=== PATIENT | male | born 1990 | race Hispanic/Latino ===

== ENCOUNTER 2019-06-29 19:10 | Emergency (ER) | payer SELFPAY ==
[2019-06-29 19:21] VITALS: BP 146/95; PULSE 62; RESP 16; TEMP 36.4; O2SAT 100
--- NOTE | 2019-06-29 19:37 | ED.GENADULT ---
HPI - General Adult General Chief complaint: Neuro Symptoms/Deficit Stated complaint: Left arm Numbness Time Seen by Provider: 06/29/19 19:37 Source: patient and RN notes reviewed Mode of arrival: ambulatory Limitations: no limitations History of Present Illness HPI narrative: This is a 29 years old male presented office for evaluation of left arm weakness since yesterday. Associated with numbness/tingling sensation in fingers. Symptoms began shortly after he slept on his arm for about an hour or so. Stated, he drank about 48 ounces of hard alcohol throughout the day yesterday before he passed out on his arm. Denies injury or trauma. Denies recreational drug use.His friend drove him here today.Denies past medical history except reflux.He does not smoke however he does vapor Related Data Home Medications Medication Instructions Recorded Confirmed esomeprazole magnesium 40 mg PO DAILY 06/29/19 06/29/19 Allergies Allergy/AdvReac Type Severity Reaction Status Date / Time shellfish derived Allergy Itching Verified 06/29/19 23:49 Review of Systems Review of Systems: Narrative: CONSTITUTIONAL: Denies fever ENT: Denies congestion CARDIOVASCULAR: Denies chest pain RESPIRATORY: Denies cough GASTROINTESTINAL: Denies vomiting GENITOURINARY: Denies urinary symptoms SKIN: Denies rash MUSCULOSKELETAL: Left arm weakness with numbness/tingling sensation. He able to moves his wrist and fingers with a little force; but nothing above it. He could not bend his elbow or move his shoulder. He is right hand dominated. NEUROLOGIC: Denies lightheaded/dizziness or head injury PMF Past Medical History Medical History (Updated 06/30/19 @ 08:19 by CODY Jeffrey) GERD (gastroesophageal reflux disease) Healthy adult Surgical History Surgical History No history of previous surgery Social History Social History Smoking status: Current every day smoker Tobacco type: e-cigarettes Alcohol intake: current Drinks per week: 1 Substance use: never Gender identity (if verbalized by the patient): Male Spiritual care concerns: No Agree to blood products: Yes Comments At time of signature, I agree with nursing past medical, surgical, social and family history. There is no relevant family history pertinent to the presenting complaint. Exam Narrative: Exam Narrative: GENERAL: This is a well-nourished, well-developed patient, in no apparent distress. HEENT: PERRL. EMOI. NO facial droops. No slur speech. CARDIOVASCULAR: Regular rate and rhythm without murmurs, gallops, or rubs. RESPIRATORY: Clear to auscultation. Breath sounds equal bilaterally. No wheezes, rales, or rhonchi. GASTROINTESTINAL: Abdomen soft, non-tender, nondistended. Bowel sounds are active. No hepato-splenomegaly, or palpable masses. No guarding. SKIN: warm, intact with no suspicious lesions or rash, good texture and turgor. NEURO: awake, alert, and oriented to person, place and time. There were no obvious focal neurologic abnormalities. Steady gait. EXTREMITIES: Right arm with normal range of motion and sensation. Left arm appears weight; 2/5 strength hand grasp, drop immediately with hand raise; no obvious swelling, edematous or trauma. Sensation is slightly dull as compared to right arm. Noted old scars from cutting. Shoulder with normal PROM. BACK: Nontender without deformity or crepitance. [place] Coma Scale Eye Opening: Spontaneous 4 [place] Coma Scale Motor: Obeys Commands 6 Gabriel Coma Scale Verbal: Oriented 5 Course Vital Signs Vital signs: Vital Signs Temperature 97.6 F 06/29/19 19:21 Pulse Rate 62 06/29/19 19:21 Respiratory Rate 16 06/29/19 19:21 Blood Pressure 146/95 H 06/29/19 19:21 Pulse Oximetry 100 06/29/19 19:21 Temperature 97.6 F 06/29/19 19:21 Pulse Rate 62 06/29/19 19:21 Respiratory Rat
== END 2019-06-29 19:56 | disposition short-term general hospital (02) ==
PROVIDERS: Emergency Provider Nurse Practitioner
DX: M62.81 Muscle weakness (generalized) (principal); F17.200 Nicotine dependence, unspecified, uncomplicated; K21.9 Gastro-esophageal reflux disease without esophagitis
CPT/HCPCS: 99212; G0463

== ENCOUNTER 2019-06-29 20:19 | Observation (INO) | payer SELFPAY ==
--- NOTE | ~2019-06-29 | US_ITS ---
EXAMINATION: US carotid duplex BI DATE: 06/30/2019 09:59 INDICATION: Left hemiparesis. TECHNIQUE: Grayscale, color Doppler, and pulsed Doppler images of the cervical carotid arteries were obtained. The degree of vessel stenosis is placed in one of the following categories: normal, <50%, 5 0-69%, >=70% but less than near-occlusion, near-occlusion, or total occlusion. Note that percent sten osis relative to normal distal artery lumen diameter is indirectly measured from velocity measurement s as described by Raimundo, et al. Radiology 2003; 229:340-346. COMPARISON: None. FINDINGS: RIGHT: The right common carotid artery (CCA) peak systolic velocity (PSV) is 110 cm/s. The right internal ca rotid artery (ICA) PSV is 81 cm/s. The right ICA end-diastolic velocity (EDV) is 39 cm/s. The right I CA/CCA PSV ratio is 0.7. Grayscale and color Doppler images yield an estimate of 0% diameter reductio n from plaque in the ICA. There is antegrade flow in the right vertebral artery. LEFT: The left CCA PSV is 120 cm/s. The left ICA PSV is 83 cm/s. The left ICA EDV is 37 cm/s. The left ICA/ CCA PSV ratio is 0.7. Grayscale and color Doppler images yield an estimate of 0% diameter reduction f rom plaque in the ICA. There is antegrade flow in the left vertebral artery. IMPRESSION: 1. Normal internal carotid arteries. Reviewed, dictated and finalized at location A. NGS ANALYST
--- NOTE | ~2019-06-29 | MR_ITS ---
EXAMINATION: MR brain/brain stem wo/w con DATE: 06/30/2019 09:14 INDICATION: Left arm weakness. TECHNIQUE: Magnetic resonance imaging (MRI) of the brain and brainstem was performed without and with 20 mL MultiHance intravenous contrast. Sequences included sagittal and axial T1-weighted FSE, axial diffusion-weighted FS EPI, axial T2*-weighted GRE, axial T2-weighted FLAIR Propeller, and axial T2-we ighted Propeller. Postcontrast sequences included axial and coronal T1-weighted FSE. Apparent diffusi on coefficient (ADC) maps were created. COMPARISON: Head CT 06/29/2019 FINDINGS: There is no intracranial hemorrhage, acute infarction, or abnormal intracranial mass lesion . The ventricles are normal in size. There is mild mucosal thickening in the paranasal sinuses. The o rbits are normal. The mastoid air cells are normal. IMPRESSION: 1. Normal brain. Reviewed, dictated and finalized at location A. T TELEGRAPHER IMPRESSION: 1. Normal brain.
--- NOTE | ~2019-06-29 | CT_ITS ---
EXAMINATION: CT BRAIN W/O DATE: 06/29/2019 21:10 INDICATION: Left arm weakness TECHNIQUE: Computed tomography (CT) of the head was performed without intravenous contrast. The dose- length product was 605.33 mGy-cm. The mA was adjusted according to patient size. Iterative reconstruc tion technique was employed. COMPARISON: No prior studies for comparison. FINDINGS: Normal brain parenchymal volume for age. Normal dent-white differentiation. No acute intrac ranial hemorrhage, infarction, mass or mass effect. No ventriculomegaly or midline shift. Midline sagittal images demonstrate a normal corpus callosum, c raniovertebral junction and sella turcica. Basilar cisterns are patent. Paranasal sinuses and mastoids are pneumatized. No depressed skull fractures. IMPRESSION: 1. No acute intracranial abnormality. Reviewed, dictated and finalized at location A. STER RECOVERY ANALYST
[2019-06-29 20:30] VITALS: BP 148/86; PULSE 53; RESP 18; TEMP 36.6; O2SAT 18
[2019-06-29 21:00] LABS: Basophils Percent Auto 0.6 % (0.2-1.2); Eosinophils Absolute Auto 0.3 K/mm3 (0-0.3); Eosinophils Percent Auto 6.1 % (0-4.4); Hematocrit 44.7 % (42.0-52.0); Hemoglobin 14.9 g/dL (14.0-18.0); Immature Granulocyte Absolute 0.01 K/mm3 (0.00-0.031); Immature Granulocyte Percent A 0.2 % (0-0.5); Lymphocytes Absolute Auto 1.55 K/mm3 (0.9-3.2); Lymphocytes Percent Auto 30.4 % (18.3-44.2); Mean Corpuscular HGB Conc 33.3 g/dl (32-36); Mean Corpuscular Hemoglobin 29.3 pg (26-34); Mean Platelet Volume 10.9 fl (7.4-10.4); Monocytes Absolute Auto 0.4 K/mm3 (0.1-0.6); Monocytes Percent Auto 7.6 % (2.6-8.5); Neutrophils Absolute Auto 2.8 K/mm3 (1.3-6.7); Neutrophils Percent Auto 55.1 % (45.5-73.1); Platelet Count Result 284 k/mm3 (150-375); Red Blood Count 5.08 M/mm3 (4.6-6.20); Red Cell Distribution Width 12.9 % (11.5-14.5); White Blood Count 5.1 K/mm3 (4.5-10.0)
[2019-06-29 21:11] LABS: Alanine Aminotransferase 26 U/L (4-50); Albumin Level 4.4 g/dL (3.5-5.1); Alkaline Phosphatase 83 U/L (38-126); Aspartate Amino Transferase 32 U/L (17-59); Bilirubin,Total 0.3 mg/dL (0.2-1.3); Blood Urea Nitrogen 6 mg/dL (9-20); Calcium 9.6 mg/dL (8.4-10.2); Carbon Dioxide 32 mmol/L (22-30); Chloride 97 mmol/L (98-107); Estimated CRCL calculation 190 ml/min; Estimated Glomerular Filt Rate > 60; Glucose 71 mg/dL (75-110); Potassium 3.4 mmol/L (3.4-5.0); Sodium 139 mmol/L (137-145)
--- NOTE | 2019-06-29 21:23 | ED_ITS ---
I attest that this documentation has been prepared under the direction and in t he presence of Marlin Hernández MD. Adin Gonzalez, Gogo 06/29/19;21:23 HPI - Extremity Problem General Chief complaint: Extremity Problem,Nontraumatic Stated complaint: left arm weakness x24 hours Time Seen by Provider: 06/29/19 21:22 Related Data Home Medications Medication Instructions Recorded Confirmed esomeprazole magnesium 40 mg PO DAILY 06/29/19 06/29/19 Allergies Allergy/AdvReac Type Severity Reaction Status Date / Time No Known Allergies Allergy Verified 06/29/19 19:39 Course Vital Signs Vital signs: Vital Signs Temperature 36.6 C 06/29/19 20:30 Pulse Rate 53 L 06/29/19 20:30 Respiratory Rate 18 06/29/19 20:30 Blood Pressure 148/86 H 06/29/19 20:30 Pulse Oximetry 18 L 06/29/19 20:30 Temperature 36.6 C 06/29/19 20:30 Pulse Rate 53 L 06/29/19 20:30 Respiratory Rate 18 06/29/19 20:30 Blood Pressure 148/86 H 06/29/19 20:30 Pulse Oximetry 18 L 06/29/19 20:30 MDM - Extremity (Nontraumatic) Lab Data Result diagrams: 06/29/19 20:51 06/29/19 20:51 Labs: Lab Results 06/29/19 06/29/19 Range/Units 20:51 20:51 WBC 5.1 (4.5-10.0) K/mm3 RBC 5.08 (4.6-6.20) M/mm3 Hgb 14.9 (14.0-18.0) g/dL Hct 44.7 (42.0-52.0) % MCV 88.0 (80-100) fl MCH 29.3 (26-34) pg MCHC 33.3 (32-36) g/dl RDW 12.9 (11.5-14.5) % Plt Count 284 (150-375) k/mm3 MPV 10.9 H (7.4-10.4) fl Immature Gran % (Auto) 0.2 (0-0.5) % Neut % (Auto) 55.1 (45.5-73.1) % Lymph % (Auto) 30.4 (18.3-44.2) % Pershing % (Auto) 7.6 (2.6-8.5) % Eos % (Auto) 6.1 H (0-4.4) % Baso % (Auto) 0.6 (0.2-1.2) % Lymph # (Auto) 1.55 (0.9-3.2) K/mm3 Pershing # (Auto) 0.4 (0.1-0.6) K/mm3 Eos # (Auto) 0.3 (0-0.3) K/mm3 Baso # (Auto) 0.0 (0.0-0.1) K/mm3 Abs Immat Gran (auto) 0.01 (0.00-0.031) K/mm3 Absolute Neuts (auto) 2.8 (1.3-6.7) K/mm3 Absolute Nucleated RBC 0.0 (0.0-0.012) K/mm3 Nucleated RBC % 0.0 (0.0-0.2) % Sodium 139 (137-145) mmol/L Potassium 3.4 (3.4-5.0) mmol/L Chloride 97 L (98-107) mmol/L Carbon Dioxide 32 H (22-30) mmol/L BUN 6 L (9-20) mg/dL Creatinine 0.60 L (0.7-1.3) mg/dL Estim Creat Clear Calc 190 ml/min Estimated GFR > 60 (59 - ) Glucose 71 L (75-110) mg/dL Calcium 9.6 (8.4-10.2) mg/dL Total Bilirubin 0.3 (0.2-1.3) mg/dL AST 32 (17-59) U/L ALT 26 (4-50) U/L Alkaline Phosphatase 83 (38-126) U/L Total Protein 8.0 (6.3-8.2) g/dL Albumin 4.4 (3.5-5.1) g/dL Discharge Plan Discharge Prescriptions: No Action esomeprazole magnesium 40 mg Capsule,Delayed Release(Dr/Ec) 40 mg PO DAILY RF: 0
--- NOTE | 2019-06-29 21:24 | ED.NEUROSD ---
HPI - Neuro Symptoms/Deficit General Chief Complaint: Extremity Problem,Nontraumatic Stated Complaint: left arm weakness x24 hours Time Seen by Provider: 06/29/19 21:22 Source: patient Mode of arrival: ambulatory Limitations: no limitations History of Present Illness HPI Narrative: The pt is a 29 y/o male who presents to the ED c/o LUE weakness onset one day ago. Pt states that he had been drinking, and he fell asleep on his table around 1600. He states that he woke up around 1800 and noticed that his LUE was very weak. Pt states that he has been unable to move his arm much, but can move about the wrist and elbow without difficulty. He notes that he has experienced LUE numbness that is particularly strong around the left shoulder when he repeatedly touches the arm. Pt denies LUE pain. Onset (ago): day(s) (1) Location: left arm Quality: weak (LUE) and numb (LUE that is particularly strong around the left shoulder when he repeatedly touches the arm) Context: sudden onset Associated symptoms: denies other symptoms Related Data Home Medications Medication Instructions Recorded Confirmed esomeprazole magnesium 40 mg PO DAILY 06/29/19 06/29/19 Allergies Allergy/AdvReac Type Severity Reaction Status Date / Time shellfish derived Allergy Itching Verified 06/29/19 23:49 Review of Systems Review of Systems: Narrative: Review of Systems Musculoskeletal: Negative for LUE pain. Neurological: Positive for LUE weakness and LUE numbness that is particularly strong around the left shoulder when he repeatedly touches the arm. All systems reviewed & are unremarkable except as noted in HPI and below PMFSH Past Medical History Medical History Healthy adult Surgical History Surgical History No history of previous surgery Social History Social History Smoking status: Current every day smoker Tobacco type: e-cigarettes Alcohol intake: current Drinks per week: 1 Substance use: never Gender identity (if verbalized by the patient): Male Spiritual care concerns: No Agree to blood products: Yes Exam Narrative: Exam Narrative: Constitutional: Appears well-developed. No distress. HENT: Head: Normocephalic. Nose: Nose normal. Mouth/Throat: Oropharynx is clear and moist. Eyes: Conjunctiva are normal. Neck: Normal range of motion. Neck supple. Cardiovascular: Normal rate and regular rhythm. Pulmonary/Chest: Effort normal and breath sounds normal. Abdominal: Soft. There is no tenderness. Musculoskeletal: Normal range of motion. No edema. Neurological: Alert and oriented to person, place, and time. LUE decreased sensation and 3/5 strength. Pt has 5/5 strength in LLE, RLE, and RUE. Skin: Skin is warm. No pallor. Psychiatric: Normal mood and affect. Course Consultations Consultation #1: Discussed case with Dr. Robert, who will consult. Date: 06/29/19 Time: 21:33 Consultation #2: Discussed case with Dr. Albright, who accepts admission. Date: 06/29/19 Time: 21:52 Vital Signs Vital signs: Vital Signs Temperature 36.6 C 06/29/19 20:30 Pulse Rate 53 L 06/29/19 20:30 Respiratory Rate 18 06/29/19 20:30 Blood Pressure 148/86 H 06/29/19 20:30 Pulse Oximetry 18 L 06/29/19 20:30 Temperature 36.8 C 06/29/19 23:15 Pulse Rate 60 06/29/19 23:31 Respiratory Rate 18 06/29/19 23:15 Blood Pressure 152/83 H 06/29/19 23:15 Pulse Oximetry 100 06/29/19 23:15 MDM - Neuro Symptoms/Deficit MDM Narrative Medical decision making narrative: Patient presents with over 24 hours of left arm weakness and numbness. This is thought to be due to peripheral nerve injury, although stroke is not completely ruled out. Patient is not a candidate for tPA or thrombectomy because LKW is greater than 24 hours. Lab Data Result diagrams: 06/29/19 20:51
[2019-06-29 22:22] VITALS: BP 156/95; PULSE 60; RESP 17; TEMP 37.1; O2SAT 99
[2019-06-29 22:27] VITALS: BP 156/95; PULSE 86; RESP 17; O2SAT 99
--- NOTE | 2019-06-29 23:04 | PC.NURSE ---
Pt unable to move left arm as of yesterday upon waking up after drinking around 1800. Pt able to wiggle fingers and able to rotate wrist on his own. Pt has strong radial pulse. Md Darius Gutierrez came to assess Pt.
--- NOTE | 2019-06-29 23:13 | PM.IMHP ---
H&P: HPI History of Present Illness Chief complaint: left arm weakness Narrative: This is a pleasant 29 year old male who presented to the hospital [facility] after being seen at Urgent Care for left arm weakness, numbness and tingling that started around 7 pm this evening. The patient had been celebrating his birthday and obtaining a new job today and does admit to drinking a couple of glasses of hard liquor. Around 5:00 pm he decided to take a nap and fell asleep on a table. He remembers waking up and noticing that he had been sleeping on his left arm over the table. He immediately noticed that he couldn't move his left arm. It also felt numb and tingling. He denies passing out today or any seizure like activity. He did not experience any tongue biting or loss of urine. He also denies any headaches, fever, chills, neck stiffness, chest pain, neck pain, back pain, abdominal pain, cough, shortness of breath, blurry vision, double vision, facial droop, difficultly swalling, ambulatory dysfunction or other focal neurological symptoms. He denies any left arm pain. The patient was evaluated in the ER [facility] and CT brain was unremarkable. ER provider has consulted Neurology who has asked that we admit the patient to the hospital for stroke workup. The patient has had mild improvement of his symptoms and can now move his left hand and bend his wrist but he still cannot lift his left arm. His left arm is still numb as well. He can shrug his shoulders. Review of Systems Review of Systems: All systems reviewed & are unremarkable except as noted in HPI and below PMFSH Past Medical History Medical History Healthy adult Surgical History Surgical History No history of previous surgery Social History Social History Smoking status: Unknown if ever smoked Meds Home Medications and Allergies Home Medications Medication Instructions Recorded Confirmed Type esomeprazole magnesium 40 mg PO DAILY 06/29/19 06/29/19 History Allergies Allergy/AdvReac Type Severity Reaction Status Date / Time No Known Allergies Allergy Verified 06/29/19 19:39 Vital Signs Vital Signs - 24 hr 06/29/19 20:30 06/29/19 22:22 06/29/19 22:27 Temperature 36.6 C 37.1 C Pulse Rate 53 L 60 86 Respiratory Rate 18 17 17 Blood Pressure 148/86 H 156/95 H 156/95 H Pulse Oximetry 18 L 99 99 Exam Const: General: cooperative, healthy appearing, no acute distress, alert and awake Nutritional Appearance: well nourished Orientation/consciousness: patient oriented x3 HENMT: Head: normal to inspection General nose exam: Normal external nose present Face and sinus: normal facial exam Mouth: Yes Normal oral and palatal mucosa present and Yes oropharynx normal Eyes: Pupils: Equal, round and reactive pupils present EOM: EOMs intact bilaterally Neck: Neck: supple and no JVD Thyroid: thyroid normal Lymphatic: lymphadenopathy not noted Resp: Effort & Inspection: normal respiratory effort Auscultation: clear to auscultation bilaterally Cardio: Rate: regular rate Rhythm: regular rhythm Heart sounds: no murmurs GI: Inspection: normal to inspection Auscultation: normal bowel sounds Skin: General skin exam: normal color and no rashes or lesions noted Neuro: General: patient oriented x3 Cranial nerves: Yes CN's II-XII intact bilaterally and Yes Equal, round and reactive pupils present Speech: normal speech Motor exam (neuro): Other motor observations present (Left arm weakness++ Patient cannot abduct or adduct his LUE++ ) Sensory Exam: Upper extremity sensory exam abnormal (LUE numbness++ from shoulder down to fingers of left side++ ) Extrem: General: normal to inspection and no edema Psych: Mental Status: mental status grossly normal Affect: normal affect H&P: Results Labs Labs: Short CBC
[2019-06-29 23:15] VITALS: BP 152/83; PULSE 53; RESP 18; TEMP 36.8; O2SAT 100; BMI 34.8
--- NOTE | 2019-06-29 23:28 | ADMGEN ---
This patient, Paddy Brown, was admitted to 3 [facility] Surg Room 322-01. Patient/family oriented to hospital policies and general routines including ID bracelet, bed and alarms, visiting hours, pain management, procedures, bathroom and other care routines, personal items, smoking policy, room service/diet, and visiting hours. Valuables list has been completed. Information on how to activate the Rapid Response Team has been discussed. Patient/Family are encouraged to report perceived risks to care and to ask questions if they do not understand what they are told or what they should do.
[2019-06-29 23:31] VITALS: PULSE 60
[2019-06-30] VITALS: PULSE 60
--- NOTE | 2019-06-30 | ECHO_ITS ---
Patient Info Name: Paddy Brown Age: 29 years : 1990 Gender: Male Ht: 69 in Wt: 230 lbs BSA: 2.29 m2 HR: 68 bpm BP: 147 / 85 mmHg Technical Quality: Good Exam Date: 06/30/2019 7:44 AM Exam Location: [facility] Pulmonary Exam Room: [facility] [place] Patient Status: Outpatient Admit Date: 06/29/2019 Staff Ordering Physician: Marlin Hernández MD Stevedoring Supervisor: Deann Guallpa RDCS Attending Provider: Thompson Naylor PA-C Referring Physician: Edgar MCCLELLAND; Exam Type: CA echo doppler color flow Study Info Indications - left arm weakness Complete two-dimensional, color flow and Doppler transthoracic echocardiogram is performed. Summary 1. Left ventricular systolic function is normal, estimated at 60-65%. 2. There is no increased left ventricular wall thickness. 3. Left ventricular septal wall motion is normal. 4. Right ventricular chamber dimension is normal. 5. Right ventricular systolic function is normal. 6. No significant valvular abnormalities. Left Ventricle Left ventricular chamber dimension is normal. Left ventricular systolic function is normal, estimated at 60-65%. There is no increased left ventricular wall thickness. Left ventricular septal wall motion is normal. The left ventricular diastolic function is normal. Right Ventricle Right ventricular chamber dimension is normal. Right ventricular systolic function is normal. Left Atria Left atrial chamber dimension is normal. Right Atria Right atrial chamber dimension is normal. Aortic Valve The aortic valve is trileaflet. There is no aortic valve sclerosis. There is no aortic valve stenosis. There is no aortic valve regurgitation. Pulmonic Valve The pulmonic valve is normal. There is no pulmonic valve stenosis. There is trace pulmonic regurgitation. Mitral Valve The mitral valve has normal leaflets. There is no mitral valve stenosis. There is trace mitral valve regurgitation. Tricuspid Valve The tricuspid valve leaflets are normal. There is no significant tricuspid valve stenosis. There is mild tricuspid valve regurgitation. No pulmonary hypertension, estimated pulmonary arterial systolic pressure is 26 mmHg. Pericardium/Pleural The pericardium appears normal. There is no pericardial effusion. Inferior Vena Cava Normal inferior vena cava with >50% collapse upon inspiration consistent with normal right atrial pressure, 5 mmHg. Aorta The aortic root size at the sinus of Valsalva is normal. The prox ascending aorta size is normal. Left Ventricular Outflow Tract Name Value Normal LVOT 2D LVOT Diameter 2.0 cm LVOT Doppler LVOT Peak Gradient 4 mmHg LVOT Mean Gradient 2 mmHg LVOT VTI 22 cm LVOT VTI/AV VTI Ratio 0.8 LVOT Stroke Volume 68 ml LVOT CO 11.9 l/min LVOT CI 5.2 l/min/m2 Pulmonic Valve Name
[2019-06-30 04:00] VITALS: PULSE 75
[2019-06-30 05:58] VITALS: BP 147/85; PULSE 48; RESP 18; TEMP 36.6; O2SAT 100
[2019-06-30 06:12] LABS: Basophils Percent Auto 0.7 % (0.2-1.2); Eosinophils Absolute Auto 0.5 K/mm3 (0-0.3); Hematocrit 39.4 % (42.0-52.0); Hemoglobin 13.4 g/dL (14.0-18.0); Immature Granulocyte Absolute 0.01 K/mm3 (0.00-0.031); Immature Granulocyte Percent A 0.2 % (0-0.5); Lymphocytes Absolute Auto 2.52 K/mm3 (0.9-3.2); Lymphocytes Percent Auto 41.2 % (18.3-44.2); Mean Corpuscular Hemoglobin 29.7 pg (26-34); Mean Corpuscular Volume 87.4 fl (80-100); Mean Platelet Volume 11.4 fl (7.4-10.4); Monocytes Absolute Auto 0.5 K/mm3 (0.1-0.6); Monocytes Percent Auto 8.8 % (2.6-8.5); Neutrophils Absolute Auto 2.5 K/mm3 (1.3-6.7); Neutrophils Percent Auto 41.1 % (45.5-73.1); Platelet Count Result 247 k/mm3 (150-375); Red Blood Count 4.51 M/mm3 (4.6-6.20); Red Cell Distribution Width 12.9 % (11.5-14.5); White Blood Count 6.1 K/mm3 (4.5-10.0)
[2019-06-30 06:36] LABS: Blood Urea Nitrogen 10 mg/dL (9-20); Calcium 9.1 mg/dL (8.4-10.2); Carbon Dioxide 31 mmol/L (22-30); Chloride 98 mmol/L (98-107); Cholesterol 127 mg/dL (0-200); Estimated CRCL calculation 189 ml/min; Estimated Glomerular Filt Rate > 60; Glucose 90 mg/dL (75-110); HDL Direct 29 mg/dL; Sodium 135 mmol/L (137-145); Triglycerides 189 mg/dL (<150)
[2019-06-30 06:47] LABS: LDL Cholesterol Direct 77 mg/dL
[2019-06-30 08:00] VITALS: PULSE 41
--- NOTE | 2019-06-30 13:12 | PM.DS ---
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 MRI brain, head CT, Carotid Doppler, Echo grossly unremarkable for acute findings. Patient will likely need physical therapy and possible steroids and outpatient work up for nerve compression. Neurology has been consulted by ER provider. They have stated patient is okay for discharge from their standpoint. Instructed patient to follow up with a PCP immediately next week to possibly get referred to orthopedic surgery and for further work up Patient to be discharged home Instructed him not to drive until okay by PCP or Neurology DS: Summary Hospital Course Reason for hospitalization: Left arm weakness Hospital Course: Patient is a 29 yo M with history of GERD who presented to the hospital on 06/29 with complaints of having left arm weakness/numbness/tingling that started around 7:00 pm on day of presentation. 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 He denied passing out or any seizure-like activity. Initial imaging in the ER was unremarkable. Please refer to H&P for further details. Presenting VS: BP 148/86, HR 53, RR 18, temp 97.9, sat 100% RA Presenting Pertinent labs: Triglycerides 189. CBC, CMP otherwise unremarkable Micro: none Imagin/[address] IMPRESSION: 1. No acute intracranial abnormality. 2 Echo Summary 1. Left ventricular systolic function is normal, estimated at 60-65%. 2. There is no increased left ventricular wall thickness. 3. Left ventricular septal wall motion is normal. 4. Right ventricular chamber dimension is normal. 5. Right ventricular systolic function is normal. 6. No significant valvular abnormalities. 2 MRI brain IMPRESSION: 1. Normal brain. 2/ Carotid Doppler IMPRESSION: 1. Normal internal carotid arteries. ECG: none Patient was admitted to the hospitalist service for further evaluation; Dr. Robert (Neurology) was consulted for further input. After imaging (unremarkable for stroke) and evaluation from Neurology, it was felt that this was likely due to compressed left radial nerve palsy secondary to external compression (lying on the affected arm). He his symptoms were still present upon day of discharge, but was instructed to follow up with Neurology and his PCP upon discharge for potentially further work up. He was instructed not to drive until okay by PCP and/or Neurology. Patient was hemodynamically stable and in improved condition for discharge on 06/30. Status at Discharge Overall status at discharge: patient is not back to baseline Time Spent with Patient Time attestation: Total time spent providing and/or coordinating discharge services: 35 minutes Time spent: Greater than 30 minutes Exam Narrative: Exam Narrative: Patient sitting upright in bed at time of visit Const: General: cooperative, healthy appearing, no acute distress, well developed, alert and awake Nutritional Appearance: well nourished Orientation/consciousness: patient oriented x3 HENMT: Head: normal to inspection, normocephalic and atraumatic General nose exam: Normal nares present Face and sinus: normal facial exam and face symmetric Mouth: Yes Normal oral and palatal mucosa present and Yes moist mucous membranes Teeth and gingiva: fair dentition Throat: posterior oropharynx normal and uvula midline Eyes: Pupils: Equal, round and reactive pupils present EOM: EOMs intact bilaterally Nec
[2019-06-30] MEDS: ASPIRIN 81 MG CHEWABLE TABLET PO (13:37)
[2019-06-30 13:39] VITALS: BP 136/82; PULSE 77; RESP 20; TEMP 37.1; O2SAT 97
--- NOTE | 2019-07-02 06:16 | CONS_ITS ---
DATE OF CONSULTATION: HISTORY OF PRESENT ILLNESS: This 29 years old right-handed male has been admitted to [facility] through the emergency room where he presented after being seen at the Urgent Care for left arm weakness with numbness and tingling sensation since 7 p.m. in the evening. Reportedly, patient had been celebrating his birthday and obtaining a new job today. He does admit to drinking a couple of glasses of hard liquor around 5 p.m. He decided to take a nap and fell asleep on the table. When he woke up, he had been sleeping on his left arm over the table. He immediately noted he could not move his left upper extremity. He felt numb and tingling. He gave no history of passing out. No history of seizures. No history of tongue biting. No history of any other symptomatology. In the emergency room, his CT scan of the brain was negative. The patient did not recommend any improvement. He has no history of any specific medical problem in the past. MEDICATIONS: On initial evaluation, he was taking esomeprazole 40 mg daily. ALLERGIES: HE IS NOT ALLERGIC TO ANY MEDICATION. PHYSICAL EXAMINATION: VITAL SIGNS: He was noted to be afebrile with pulse of 53, respiration 18, blood pressure 148/86. GENERAL: Revealed him to be awake, alert, cooperative, in no obvious acute distress. HEENT: Head normocephalic with no cranial bruit. Ears, nose, throat examination normal. NECK: Supple with no cervical bruit. No thyromegaly. No lymphadenopathy. HEART: Regular with no murmur. LUNGS: Clear to auscultation with no wheezing or crepitation. ABDOMEN: Soft with normal bowel sounds. NEUROLOGICAL: Awake, alert, oriented x3. Speech not dysphasic, not dysarthric, not dysphonic. Pupils round, regular. Art of vision full. Extraocular movements full. Motor examination of the whole body is normal except the left upper extremity, which showed the left wrist drop against gravity, but if you stretch the wrist to the extension, he is able to grasp and he is able to push at the elbow joint in extension, but definitely weakness is there. He is able to abduct. Reflexes are sluggish in the left arm as compared to the right side. LABORATORY DATA: Evaluation up until now has revealed him to have normal CBC, normal hepatic enzymes. IMAGING: Negative CT scan of the head. IMPRESSION: Compressed left radial palsy secondary to external compression. Patient can be discharged with instruction to return to the office for followup in 10 days, so that we can make sure that he is recovering. He was advised accordingly. He accepted. SHAJI BOOTH M.D. TELECOMMUNICATIONS CABLE JOINTER TELECOMMUNICATIONS CABLE JOINTER D I MT: Laurita
== END 2019-06-30 14:25 | disposition home or self-care (01) ==
LOC: ANHED 22:22 → ANH3MEDSUR 22:27
PROVIDERS: Admitting Provider Family Medicine; Emergency Provider Emergency Medicine; Visit Provider Internal Medicine
DX: R29.898 Other symptoms and signs involving the musculoskeletal system (principal); G56.32 Lesion of radial nerve, left upper limb; F17.290 Nicotine dependence, other tobacco product, uncomplicated
CPT/HCPCS: 36415; 70450; 70553; 80048; 80053; 80061; 85025; 93306; 93880; 99285; A9270; A9577; G0378; G0379